=== PATIENT | male | born 1990 ===

== ENCOUNTER 2016-07-15 13:38 | Emergency (ER) | payer OTHER ==
--- NOTE | 2016-07-15 14:43 | C.PDOC ---
History Of Present Illness 26-year-old male, presents to the emergency department with complaints of rectal bleed and anal pain intermittently for the past four months. Patient notes he was seen by his doctor, who prescribed a cream, that he has been using with transient relief, resulting in him coming to the ED for evaluation. Patient notes associated severe itching and sensitivity to anus. No active bleeding. No other complaints at this time. Time Seen by Provider: 07/15/16 14:18 Chief Complaint (Nursing): GI Problem History Per: Patient History/Exam Limitations: no limitations Onset/Duration Of Symptoms: Days Current Symptoms Are (Timing): Still Present Past Medical History Reviewed: Historical Data, Nursing Documentation, Vital Signs Vital Signs: Last Vital Signs Temp 98 F 07/15/16 15:00 Pulse 90 07/15/16 15:00 Resp 18 07/15/16 15:00 BP 142/89 07/15/16 15:00 Pulse Ox 100 07/15/16 17:47 Family History: States: Unknown Family Hx - Social History Hx Alcohol Use: Yes Hx Substance Use: No Review Of Systems Except As Marked, All Systems Reviewed And Found Negative. Constitutional: Negative for: Fever, Chills Cardiovascular: Negative for: Chest Pain Respiratory: Negative for: Cough, Shortness of Breath Gastrointestinal: Positive for: Other (rectal bleed. anal pain and itching). Negative for: Nausea, Vomiting Musculoskeletal: Negative for: Neck Pain, Back Pain Skin: Negative for: Rash Neurological: Negative for: Weakness, Numbness, Headache, Dizziness Physical Exam - Physical Exam Appears: Non-toxic, No Acute Distress Skin: Warm, Dry, No Rash Head: Atraumatic, Normacephalic Eye(s): bilateral: Normal Inspection, PERRL Nose: Normal Oral Mucosa: Moist Lips: Normal Appearing Neck: Normal ROM Cardiovascular: Rhythm Regular Respiratory: Normal Breath Sounds, No Accessory Muscle Use Gastrointestinal/Abdominal: Soft, No Tenderness Rectal: Hemorrhoids (external. non-thrombosed. not inflamed.) ED Course And Treatment O2 Sat by Pulse Oximetry: 100 Progress Note: Patient will be dc with Rx, and outpatient f/u with PMD. Disposition - Disposition Referrals: Davie Laughlin MD [Staff Provider] - Disposition: HOME/ ROUTINE Disposition Time: 14:41 Condition: STABLE Additional Instructions: Follow up with general surgery consult within 1-2 days. Return to Ed if feel worse. Prescriptions: Docusate [Colace] 100 mg PO BID #30 cap Hydrocortisone-Pramoxine 1%-1% [Proctofoam-Hc 1%-1%] 1 appl TP 5XD #1 aer Instructions: Hemorrhoids (ED) - Clinical Impression Clinical Impression: Hemorrhoids - Scribe Statement The provider has reviewed the documentation as recorded by the Madan Rodgers All medical record entries made by the Madan were at my direction and personally dictated by me. I have reviewed the chart and agree that the record accurately reflects my personal performance of the history, physical exam, medical decision making, and the department course for this patient. I have also personally directed, reviewed, and agree with the discharge instructions and disposition.
[2016-07-15 15:49] VITALS: BP 142/89; PULSE 90; RESP 18; TEMP 98
[2016-07-15 16:53] VITALS: O2SAT 100
== END 2016-07-15 15:49 | disposition home or self-care (01) ==
LOC: C.ER 13:38
DX: K64.4 Residual hemorrhoidal skin tags (principal)